=== PATIENT | female | born 1980 | race Caucasian/White ===

== ENCOUNTER 2020-09-05 15:32 | Outpatient (CLI) | payer OTHER, SELFPAY ==
--- NOTE | 2020-09-05 15:38 | MM_ITS ---
WS: [id number] BILATERAL SCREENING DIGITAL MAMMOGRAM WITH CAD HISTORY: SCREENING COMPARISON: None available. Bilateral CC and MLO views submitted. Computer aided detection analyzed. Breast composition: There are scattered areas of fibroglandular density. No suspicious masses, microc alcifications or architectural distortion. MM/[place] [id number] IMPRESSION: BI-RADS: 1-Negative FOLLOW UP: 1 Year Follow-up
== END 2020-09-05 15:33 | disposition home or self-care (01) ==
PROVIDERS: PCP Family Medicine; Visit Provider Family Medicine
DX: Z12.31 Encounter for screening mammogram for malignant neoplasm of breast (principal)
CPT/HCPCS: 77067

== ENCOUNTER 2021-06-28 07:34 | Outpatient (CLI) | payer OTHER, SELFPAY ==
[2021-06-28 07:56] VITALS: BP 158/108; PULSE 106; RESP 14; TEMP 37; O2SAT 97
[2021-06-28 08:28] VITALS: BP 116/82; PULSE 93; RESP 19; O2SAT 95
[2021-06-28 09:08] VITALS: BP 112/82; PULSE 92; RESP 20; O2SAT 96
== END 2021-06-28 09:27 | disposition home or self-care (01) ==
LOC: OPS 07:36
PROVIDERS: PCP Internal Medicine; Visit Provider Internal Medicine
DX: U07.1 COVID-19 (principal)
CPT/HCPCS: 96365

== ENCOUNTER 2021-10-04 07:19 | Outpatient (CLI) | payer OTHER, SELFPAY ==
--- NOTE | 2021-10-04 07:45 | MM_ITS ---
WS: [id number] BILATERAL DIGITAL SCREENING MAMMOGRAPHY WITH CAD CLINICAL INFORMATION: SCREENING HISTORY: Screening mammogram. No current complaints. COMPARISON: September 05, 2020 TECHNIQUE: Bilateral CC and MLO views. FINDINGS: Scattered fibroglandular densities bilaterally. No suspicious focal mass, asymmetry, calcifications, or architectural distortion. No evidence of malignancy. MM/[place] [id number] IMPRESSION: BI-RADS: 1-Negative FOLLOW UP: 1 Year Follow-up Recommend return to annual screening mammography.
== END 2021-10-04 07:20 | disposition home or self-care (01) ==
LOC: RADSHAW 07:21
PROVIDERS: PCP Nurse Practitioner Family; Visit Provider Nurse Practitioner Family
DX: Z12.31 Encounter for screening mammogram for malignant neoplasm of breast (principal)
CPT/HCPCS: 77067

== ENCOUNTER 2022-11-29 14:54 | Outpatient (CLI) | payer OTHER, SELFPAY ==
--- NOTE | 2022-11-29 15:03 | MM_ITS ---
WS: [id number] BILATERAL 3D TOMOSYNTHESIS DIGITAL SCREENING MAMMOGRAPHY WITH CAD CLINICAL INFORMATION: SCREENING HISTORY: Screening mammogram. No current complaints. COMPARISON: 2020 TECHNIQUE: Bilateral CC and MLO views. FINDINGS: Scattered fibroglandular densities bilaterally. No suspicious focal mass, asymmetry, calcifications, or architectural distortion. No evidence of malignancy. MM/[place] [id number] IMPRESSION: BI-RADS: 1-Negative FOLLOW UP: 1 Year Follow-up Recommend return to annual screening mammography.
== END 2022-11-29 14:55 | disposition home or self-care (01) ==
LOC: RAD 14:54
PROVIDERS: PCP Nurse Practitioner Family; Visit Provider Nurse Practitioner Family
DX: Z12.31 Encounter for screening mammogram for malignant neoplasm of breast (principal)
CPT/HCPCS: 77063; 77067

== ENCOUNTER 2022-12-29 09:41 | Emergency (ER) | payer OTHER, SELFPAY ==
[2022-12-29 09:54] VITALS: BP 141/88; PULSE 87; RESP 16; TEMP 35.8; O2SAT 99; BMI 44.5
--- NOTE | 2022-12-29 10:00 | CTR_ITS ---
PROCEDURE INFORMATION: Exam: CT Abdomen And Pelvis Without Contrast Exam date and time: 12/29/2022 10:40 AM Age: 42 years old Clinical indication: Abdominal pain; Flank; Left; Prior surgery; Surgery type: Hysto appy gb; Additional info: Flank pain, HX of stones TECHNIQUE: Imaging protocol: Computed tomography of the abdomen and pelvis without contrast. Radiation optimization: All CT scans at this facility use at least one of these dose optimization techniques: automated exposure control; mA and/or kV adjustment per patient size (includes targeted exams where dose is matched to clinical indication); or iterative reconstruction. Other protocol: This patient has received 0 known CTs and 0 known cardiac nuclear medicine studies in the 12 months prior to the current study. COMPARISON: US pelv w/transvag [id number] 02/13/2022 10:14 AM RADIATION DOSE METRICS: Total DLP (mGy-cm): 1283.53 FINDINGS: Liver: There is moderate patchy fatty infiltration of the liver seen. No mass seen on noncontrast imaging. Gallbladder and bile ducts: Status post prior cholecystectomy. No biliary ductal dilatation. Pancreas: The non-contrast enhanced pancreas appears grossly unremarkable. No ductal dilation. Spleen: The non-contrast enhanced spleen appears unremarkable. No splenomegaly. Adrenal glands: Unremarkable non-contrast CT appearance of the adrenals. No definte masses. Kidneys and ureters: No contour deforming renal masses seen on the noncontrast CT. No intrarenal calculi seen. No right hydronephrosis, ureterectasis or ureteral calculi. Stomach and bowel: The non-contrast opacified stomach is not well distended with relative gastric fold prominence. Assessment is limited. The noncontrast opacified small bowel loops appear unremarkable. The noncontrast opacified loops of colon show a few sigmoid colonic diverticula, without CT evidence of diverticulitis. The lack of orally administered contrast material limits assessment. Appendix: Status post prior appendectomy. Intraperitoneal space: No abdominal ascites. No free air. Some benign phleboliths seen in the pelvis. Vasculature: No abdominal aortic aneurysm. Lymph nodes: No enlarged lymph nodes. Urinary bladder: The bladder is not well distended with relative wall prominence. Assessment is limited. Reproductive: Status post prior hysterectomy. Bones/joints: [id number]-[id number] left hydronephrosis and ureterectasis with a left ureterovesicular junction 0.1 x 0.2 x 0.1 cm calculus (series 3, image 215 and series 5, image 103)-at the level of the hip joint. Soft tissues: Unremarkable. CT/CT kidney stone [id number] IMPRESSION: [id number] left hydronephrosis and ureterectasis with a left ureterovesicular junction 0.1 x 0.2 x 0.1 cm calculus (series 3, image 215 and series 5, image 103)-at the level of the hip joint.
--- NOTE | 2022-12-29 10:33 | ED_ITS ---
Documented by User: Chata Pop PA-C 12/29/22 12:20 HPI - Female Genitourinary General: Chief complaint: Urogenital-Female Stated complaint: possible kidney stone Time Seen by Provider: 12/29/22 09:52 Source: patient Mode of arrival: ambulatory Limitations: no limitations History of Present Illness: 42-year-old female presents the ER today for left flank pain that began this morning. Patient reports for the last week or so she has had some low back tenderness. She reports she woke up this morning and the pain started radiating around her left side into the front. Patient denies any pain with urination, increased urgency or frequency. Patient reports she is a diabetic and has a history of stones 1 other time. She has a history of having a hysterectomy after excessive blood loss during a delivery. Patient reports she has not take anything for pain at this time. She denies any nausea. She had a normal bowel movement this morning. Denies any known close sick contacts. Review of Systems General: Reports: 10 or more systems reviewed and unremarkable except in HPI and below Physical Exam Const: COMMON NORMALS: patient oriented x3, no limitations, healthy appearing, alert and well nourished; apparent distress (appears uncomfortable) and negative for average body habitus (obese) Resp: COMMON NORMALS: normal respiratory effort, No retractions and clear to auscultation bilaterally AUSCULTATION: clear to auscultation bilaterally Cardio: COMMON NORMALS: regular rate, regular rhythm and No murmurs present (Cardio) RATE: regular rate RHYTHM: regular rhythm GI: COMMON NORMALS: Normal to inspection, nondistended, normoactive bowel sounds present, Soft to palpation and non-tender PALPATION: Yes Soft to palpation : COMMON NORMALS: Yes no CVA tenderness BLADDER/KIDNEY EXAM: Yes no CVA tenderness Back/Pelvis: COMMON NORMALS: no CVA tenderness; negative for no thoracic nor lumbar tenderness (Left flank tenderness) Extremity: COMMON NORMALS: normal to inspection, full ROM and no pedal edema Neuro: COMMON NORMALS: patient oriented x3 SENSORIUM/ORIENTATION: Yes alert Psych: COMMON NORMALS: mental status grossly normal, Normal thought process present and cooperative THOUGHT PROCESS: Normal thought process present Skin: COMMON NORMALS: no rashes or lesions noted and no wounds GENERAL SKIN EXAM: no rashes or lesions noted Course ED course: Patient presents the ER with left flank pain that began this morning. She has had some low back pain for the last week however it significantly worsened this morning and started going around into the front on the left side. Patient has a history of a hysterectomy. We will get lab work and a CT. She has had his kidney stone 1 other time. We will do fluids, Zofran, and Toradol for pain at this time. Vital Signs: Vital signs: Vital Signs Temperature 96.4 F L 12/29/22 09:54 Pulse Rate 81 12/29/22 12:34 Respiratory Rate 16 12/29/22 12:34 Blood Pressure 147/82 12/29/22 12:34 Pulse Oximetry 99 12/29/22 09:54 Oxygen Delivery Me thod 12/29/22 09:54 MDM - Female Medical Decision Making Lab work is mostly unremarkable. Urine is noted to have blood and +[address] does indicate a stone in the ureterovesicular junction that is 1 mm x 2 mm x 1 mm. This should pass okay and likely patient is pretty near passing out. Patient was given a liter of fluids in the ER in addition to tamsulosin, ketorolac, and hydrocodone. Patient reported only mild improvement in pain with the ketorolac so we went ahead and gave a hydrocodone in ER. We will send patient home and recommend she push fluids. We will continue the ketorolac and add tramadol as needed for pain. Zofran also sent for nausea. Tamsulosin also sent. Patient is to follow-up with PCP in 3 to 5 days if no improvement. Return to the ER with new or worsening symptoms. Patient verbalized understanding and was in agreement with the treatment plan. Lab Data 12/29/22 10:34 12/29/22 10:34 Radiology Impressions Abdomen/Pelvis CT 12/29/22 10:00 IMPRESSION: Bkrt-nd-apffcgyu left hydronephrosis and ureterectasis with a left ureterovesicular junction 0.1 x 0.2 x 0.1 cm calculus (series 3, image 215 and series 5, image 103)-at the level of the hip joint. Laboratory Results WBC 7.7 10^3/uL (4.0-10.0) 12/29/22 10:34 RBC 5.00 10^6/uL (4.1-5.3) 12/29/22 10:34 Hgb 13.7 g/dL (11.5-15.3) 12/29/22 10:34 Hct 42.5 % (37.0-47.0) 12/29/22 10:34 MCV 85.0 fl (81-99) 12/29/22 10:34 MCH 27.4 pg (28.0-34.0) L 12/29/22 10:34 MCHC 32.2 g/dL (30.0-36.0) 12/29/22 10:34 RDW 14.0 % (12.1-15.1) 12/29/22 10:34 Plt Count 359 10^3/cmm (130-400) 12/29/22 10:34 MPV 10.5 fL (7.4-10.4) H 12/29/22 10:34 Neut % (Auto) 66.6 % 12/29/22 10:34 Lymph % (Auto) 27.6 % 12/29/22 10:34 Cache % (Auto) 4.4 % 12/29/22 10:34 Eos % (Auto) 0.8 % 12/29/22 10:34 Baso % (Auto) 0.3 % 12/29/22 10:34 Neut # (Auto) 5.15 10^3/uL (1.8-7.7) 12/29/22 10:34 Lymph # (Auto) 2.1 10^3/uL (0.8-4.8) 12/29/22 10:34 Cache # (Auto) 0.3 10^3/uL (0.2-0.9) 12/29/22 10:34 Eos # (Auto) 0.1 10^3/uL (0.0-0.8) 12/29/22 10:34 Baso # (Auto) 0.0 10^3/uL (0.0-0.1) 12/29/22 10:34 Nucleated RBC % (auto) 0 % 12/29/22 10:34 Nucleated RBCs # 0.0 /100WBC 12/29/22 10:34 Sodium 138 mmol/L (136-145) 12/29/22 10:34 Potassium 4.5 mmol/L (3.5-5.1) 12/29/22 10:34 Chloride 101 mmol/L (98-107) 12/29/22 10:34 Carbon Dioxide 23 mmol/L (22-29) 12/29/22 10:34 Anion Gap 18.5 (5-19) 12/29/22 10:34 BUN 15 mg/dL (6-20) 12/29/22 10:34 Creatinine 0.7 mg/dL (0.5-0.9) 12/29/22 10:34 GFR Calculation 91.8 mL/min (90-130) 12/29/22 10:34 Glucose 125 mg/dL (65-115) H 12/29/22 10:34 Calculated Osmolality 288 mOsm/kg (285-295) 12/29/22 10:34 Calcium 10.4 mg/dL (8.5-10.5) 12/29/22 10:34 Total Bilirubin 0.6 mg/dL (0.15-1.2) 12/29/22 10:34 AST 17 U/L (0-32) 12/29/22 10:34 ALT 27 U/L (0-33) 12/29/22 10:34 Alkaline Phosphatase 74 U/L (35-105) 12/29/22 10:34 Total Protein 8.1 g/dL (6.6-8.7) 12/29/22 10:34 Albumin 4.4 g/dL (3.5-5.2) 12/29/22 10:34 Globulin 3.7 g/dL (1.3-4.6) 12/29/22 10:34 Urine Color Dark yellow (Yellow) 12/29/22 10:38 Urine Appearance Cloudy (CLEAR) A 12/29/22 10:38 Urine pH 5 (5-7) 12/29/22 10:38 Ur Specific [place] 1.030 (1.005-1.030) 12/29/22 10:38 Urine Protein 1+ (Negative) H 12/29/22 10:38 Urine Glucose (UA) Norm (Normal) 12/29/22 10:38 Urine Ketones 1+ (Negative) H 12/29/22 10:38 Urine Blood 3+ (Negative) H 12/29/22 10:38 Urine Nitrate Negative (Negative) 12/29/22 10:38 Urine Bilirubin 1+ (Negative) H 12/29/22 10:38 Urine Urobilinogen Norm mg/dL (Negative) 12/29/22 10:38 Ur Leukocyte Esterase Trace (Negative) H 12/29/22 10:38 Urine RBC 25-40 /hpf (0-2) H 12/29/22 10:38 Urine WBC 5-10 /hpf (0-5) H 12/29/22 10:38 Ur Squamous Epith Cells 15-25 /hpf (0-5) H 12/29/22 10:38 Ur Transition Epith Cell 5-10 /hpf 12/29/22 10:38 Amorphous Sediment Not Reportable 12/29/22 10:38 Urine Bacteria 3+ /hpf (NONE) H 12/29/22 10:38 Urine Mucus 2+ /hpf 12/29/22 10:38 Critical Care Time Critical Care Time: Critical Care Time: No Discharge Plan Discharge Patient Disposition: Home Clinical Impression: Urolithiasis Qualifiers: Urinary calculus location: lower urinary tract Qualified Code(s): N21.9 - Calculus of lower urinary tract, unspecified Condition: Stable Prescriptions: New tamsulosin 0.4 mg capsule 0.4 mg PO DAILY Qty: 14 0RF ketorolac 10 mg tablet 10 mg PO Q8H PRN (Reason: pain) 3 Days Qty: 9 0RF ondansetron HCl 4 mg tablet 4 mg PO Q8H PRN (Reason: nausea and vomiting) 4 Days Qty: 12 0RF tramadol 50 mg tablet 50 mg PO Q12H PRN (Reason: pain) 5 Days Qty: 10 0RF Discharge Orders: Discharge ED (Routine); Ordered 12/29/22 Ordered By: Chata Pop Referrals: Neema Crane, PROFESSIONAL SECURITY OFFICER [Primary Care Provider] - Discharge Diet: Advance as tolerated Discharge Activity: Increase activity as tolerated Patient Instructions: Opioid Safety, Pain Management Activity Restrictions/Additional Instructions: Take Flomax and ketorolac as prescribed. Take tramadol as needed for pain. Ta ke Zofran as needed for nausea. Push fluids. Follow-up with PCP in 3 to 5 days if no improvement. Return to the ER for new or worsening symptoms. Coding Level of Care Code ED Carpenter Inspector for Chg Fwd Exam Comprehensive Documented by User: Dane Hardwick DO 12/29/22 14:50 HPI - Female Genitourinary General: Chief complaint: Urogenital-Female Stated complaint: possible kidney stone Time Seen by Provider: 12/29/22 09:52 Course Vital Signs: Vital signs: Vital Signs Temperature 96.4 F L 12/29/22 09:54 Pulse Rate 81 12/29/22 12:34 Respiratory Rate 16 12/29/22 12:34 Blood Pressure 147/82 12/29/22 12:34 Pulse Oximetry 99 12/29/22 09:54 Oxygen Delivery Me thod 12/29/22 09:54 MDM - Female Medical Decision Making Lab work is mostly unremarkable. Urine is noted to have blood and +[address] does indicate a stone in the ureterovesicular junction that is 1 mm x 2 mm x 1 mm. This should pass okay and likely patient is pretty near passing out. Patient was given a liter of fluids in the ER in addition to tamsulosin, ketorolac, and hydrocodone. Patient reported only mild improvement in pain with the ketorolac so we went ahead and gave a hydrocodone in ER. We will send patient home and recommend she push fluids. We will continue the ketorolac and add tramadol as needed for pain. Zofran also sent for nausea. Tamsulosin also sent. Patient is to follow-up with PCP in 3 to 5 days if no improvement. Return to the ER with new or worsening symptoms. Patient verbalized understanding and was in agreement with the treatment plan. Chart reviewed and patient discussed with midlevel. Agree with assessment and plan. Lab Data 12/29/22 10:34 12/29/22 10:34 Radiology Impressions Abdomen/Pelvis CT 12/29/22 10:00 IMPRESSION: Qfaj-yi-frmrgkdv left hydronephrosis and ureterectasis with a left ureterovesicular junction 0.1 x 0.2 x 0.1 cm calculus (series 3, image 215 and series 5, image 103)-at the level of the hip joint. Laboratory Results WBC 7.7 10^3/uL (4.0-10.0) 12/29/22 10:34 RBC 5.00 10^6/uL (4.1-5.3) 12/29/22 10:34 Hgb 13.7 g/dL (11.5-15.3) 12/29/22 10:34 Hct 42.5 % (37.0-47.0) 12/29/22 10:34 MCV 85.0 fl (81-99) 12/29/22 10:34 MCH 27.4 pg (28.0-34.0) L 12/29/22 10:34 MCHC 32.2 g/dL (30.0-36.0) 12/29/22 10:34 RDW 14.0 % (12.1-15.1) 12/29/22 10:34 Plt Count 359 10^3/cmm (130-400) 12/29/22 10:34 MPV 10.5 fL (7.4-10.4) H 12/29/22 10:34 Neut % (Auto) 66.6 % 12/29/22 10:34 Lymph % (Auto) 27.6 % 12/29/22 10:34 Cache % (Auto) 4.4 % 12/29/22 10:34 Eos % (Auto) 0.8 % 12/29/22 10:34 Baso % (Auto) 0.3 % 12/29/22 10:34 Neut # (Auto) 5.15 10^3/uL (1.8-7.7) 12/29/22 10:34 Lymph # (Auto) 2.1 10^3/uL (0.8-4.8) 12/29/22 10:34 Cache # (Auto) 0.3 10^3/uL (0.2-0.9) 12/29/22 10:34 Eos # (Auto) 0.1 10^3/uL (0.0-0.8) 12/29/22 10:34 Baso # (Auto) 0.0 10^3/uL (0.0-0.1) 12/29/22 10:34 Nucleated RBC % (auto) 0 % 12/29/22 10:34 Nucleated RBCs # 0.0 /100WBC 12/29/22 10:34 Sodium 138 mmol/L (136-145) 12/29/22 10:34 Potassium 4.5 mmol/L (3.5-5.1) 12/29/22 10:34 Chloride 101 mmol/L (98-107) 12/29/22 10:34 Carbon Dioxide 23 mmol/L (22-29) 12/29/22 10:34 Anion Gap 18.5 (5-19) 12/29/22 10:34 BUN 15 mg/dL (6-20) 12/29/22 10:34 Creatinine 0.7 mg/dL (0.5-0.9) 12/29/22 10:34 GFR Calculation 91.8 mL/min (90-130) 12/29/22 10:34 Glucose 125 mg/dL (65-115) H 12/29/22 10:34 Calculated Osmolality 288 mOsm/kg (285-295) 12/29/22 10:34 Calcium 10.4 mg/dL (8.5-10.5) 12/29/22 10:34 Total Bilirubin 0.6 mg/dL (0.15-1.2) 12/29/22 10:34 AST 17 U/L (0-32) 12/29/22 10:34 ALT 27 U/L (0-33) 12/29/22 10:34 Alkaline Phosphatase 74 U/L (35-105) 12/29/22 10:34 Total Protein 8.1 g/dL (6.6-8.7) 12/29/22 10:34 Albumin 4.4 g/dL (3.5-5.2) 12/29/22 10:34 Globulin 3.7 g/dL (1.3-4.6) 12/29/22 10:34 Urine Color Dark yellow (Yellow) 12/29/22 10:38 Urine Appearance Cloudy (CLEAR) A 12/29/22 10:38 Urine pH 5 (5-7) 12/29/22 10:38 Ur Specific [place] 1.030 (1.005-1.030) 12/29/22 10:38 Urine Protein 1+ (Negative) H 12/29/22 10:38 Urine Glucose (UA) Norm (Normal) 12/29/22 10:38 Urine Ketones 1+ (Negative) H 12/29/22 10:38 Urine Blood 3+ (Negative) H 12/29/22 10:38 Urine Nitrate Negative (Negative) 12/29/22 10:38 Urine Bilirubin 1+ (Negative) H 12/29/22 10:38 Urine Urobilinogen Norm mg/dL (Negative) 12/29/22 10:38 Ur Leukocyte Esterase Trace (Negative) H 12/29/22 10:38 Urine RBC 25-40 /hpf (0-2) H 12/29/22 10:38 Urine WBC 5-10 /hpf (0-5) H 12/29/22 10:38 Ur Squamous Epith Cells 15-25 /hpf (0-5) H 12/29/22 10:38 Ur Transition Epith Cell 5-10 /hpf 12/29/22 10:38 Amorphous Sediment Not Reportable 12/29/22 10:38 Urine Bacteria 3+ /hpf (NONE) H 12/29/22 10:38 Urine Mucus 2+ /hpf 12/29/22 10:38 Discharge Plan Discharge Patient Disposition: Home Clinical Impression: Urolithiasis Qualifiers: Urinary calculus location: lower urinary tract Qualified Code(s): N21.9 - Calculus of lower urinary tract, unspecified Condition: Stable Prescriptions: New tamsulosin 0.4 mg capsule 0.4 mg PO DAILY Qty: 14 0RF ketorolac 10 mg tablet 10 mg PO Q8H PRN (Reason: pain) 3 Days Qty: 9 0RF ondansetron HCl 4 mg tablet 4 mg PO Q8H PRN (Reason: nausea and vomiting) 4 Days Qty: 12 0RF tramadol 50 mg tablet 50 mg PO Q12H PRN (Reason: pain) 5 Days Qty: 10 0RF Discharge Orders: Discharge ED (Routine); Ordered 12/29/22 Ordered By: Chata Pop Referrals: Neema Crane, PROFESSIONAL SECURITY OFFICER [Primary Care Provider] - Discharge Diet: Advance as tolerated Discharge Activity: Increase activity as tolerated Patient Instructions: Opioid Safety, Pain Management Activity Restrictions/Additional Instructions: Take Flomax and ketorolac as prescribed. Take tramadol as needed for pain. Take Zofran as needed for nausea. Push fluids. Follow-up with PCP in 3 to 5 days if no improvement. Return to the ER for new or worsening symptoms. Coding Level of Care Code ED Carpenter Inspector for Dylan Fwd Exam Comprehensive
[2022-12-29 10:46] LABS: Basophils % 0.3 %; Eosinophils # 0.1 10^3/uL (0.0-0.8); Eosinophils % 0.8 %; Hematocrit 42.5 % (37.0-47.0); Hemoglobin 13.7 g/dL (11.5-15.3); Lymphocytes # 2.1 10^3/uL (0.8-4.8); Lymphocytes % 27.6 %; Mean Corpuscular HGB Conc 32.2 g/dL (30.0-36.0); Mean Corpuscular Hemoglobin 27.4 pg (28.0-34.0); Mean Platelet Volume 10.5 fL (7.4-10.4); Monocytes # 0.3 10^3/uL (0.2-0.9); Monocytes % 4.4 %; Neutrophils # 5.15 10^3/uL (1.8-7.7); Neutrophils % 66.6 %; Nucleated Red Blood Cells % 0 %; Platelet Count 359 10^3/cmm (130-400); White Blood Count 7.7 10^3/uL (4.0-10.0)
[2022-12-29 10:52] LABS: Add Urine Microscopic? YES; Bilirubin Urine 1+ (Negative); Blood Urine 3+ (Negative); Glucose Urine UA Norm (Normal); Ketones Urine 1+ (Negative); Leukocyte Esterase Urine Trace (Negative); Nitrate Urine Negative (Negative); Protein Urine 1+ (Negative); Urine Appearance Cloudy (CLEAR); Urine Color Dark Yellow (Yellow); Urobilinogen Urine Norm (Negative); pH Urine 5 (5-7)
[2022-12-29] MEDS: sodium chloride 0.9% 1,000 ML 999 ML IV (10:54)
[2022-12-29] MEDS: ondansetron 2 mg/ML SDV 2 mL 4 MG IVP (10:54)
[2022-12-29] MEDS: ketorolac 30 mg/mL INJ IVP (10:54)
[2022-12-29 11:07] LABS: Bacteria Urine 3+ /hpf; Mucus Urine 2+ /hpf; RBC Urine 25-40 /hpf (0-2); Squamous Epithelial Cell Urine 15-25 /hpf (0-5)
[2022-12-29 11:08] LABS: Add Urine Culture? No
[2022-12-29 11:09] LABS: Alanine Aminotransferase 27 U/L (0-33); Albumin Level 4.4 g/dL (3.5-5.2); Alkaline Phosphatase 74 U/L (35-105); Anion Gap 18.5 (5-19); Aspartate Amino Transferase 17 U/L (0-32); Blood Urea Nitrogen 15 mg/dL (6-20); Calcium 10.4 mg/dL (8.5-10.5); Carbon Dioxide 23 mmol/L (22-29); Chloride 101 mmol/L (98-107); Creatinine Clr Calc Pharmacy 151.2312; Globulin 3.7 g/dL (1.3-4.6); Glomerular Filtration Rate 91.8 mL/min (90-130); Glucose 125 mg/dL (65-115); Osmolality Calculated 288 mOsm/kg (285-295); Potassium 4.5 mmol/L (3.5-5.1); Sodium 138 mmol/L (136-145); Total Bilirubin 0.6 mg/dL (0.15-1.2); Total Protein 8.1 g/dL (6.6-8.7)
[2022-12-29 11:10] VITALS: BP 132/66; PULSE 81; RESP 18
[2022-12-29] MEDS: tamsulosin 0.4 mg Capsule PO (11:30)
[2022-12-29] MEDS: HYDROcodone-acetaminophen 5-325 mg Tablet 1 TAB PO (11:32)
[2022-12-29 12:34] VITALS: BP 147/82; PULSE 81; RESP 16
== END 2022-12-29 12:35 | disposition home or self-care (01) ==
PROVIDERS: Emergency Provider Physician Assistant; PCP Nurse Practitioner Family
DX: N13.2 Hydronephrosis with renal and ureteral calculous obstruction (principal)
CPT/HCPCS: 74176; 80053; 81001; 85025; 96374; 96375; 99285; J1885; J2405; J7030

== ENCOUNTER 2023-12-12 15:08 | Outpatient (CLI) | payer OTHER, SELFPAY ==
--- NOTE | 2023-12-12 15:15 | MM_ITS ---
WS: [id number] BILATERAL 3D TOMOSYNTHESIS DIGITAL SCREENING MAMMOGRAPHY WITH CAD CLINICAL INFORMATION: SCREENING HISTORY: Screening mammogram. No current complaints. COMPARISON: 11/29/2022 TECHNIQUE: Bilateral CC and MLO views. FINDINGS: Scattered fibroglandular densities bilaterally. No suspicious focal mass, asymmetry, calcifications, or architectural distortion. No evidence of malignancy. A few benign calcifications. IMPRESSION: MM/[place] [id number] BI-RADS: 2-Benign FOLLOW UP: 1 Year Follow-up Recommend return to annual screening mammography.
== END 2023-12-12 15:09 | disposition home or self-care (01) ==
LOC: RAD 15:09
PROVIDERS: PCP Nurse Practitioner Family; Visit Provider Nurse Practitioner Family
DX: Z12.31 Encounter for screening mammogram for malignant neoplasm of breast (principal); R92.323 Mammographic fibroglandular density, bilateral breasts; R92.1 Mammographic calcification found on diagnostic imaging of breast
CPT/HCPCS: 77063; 77067

== ENCOUNTER 2024-06-09 13:30 | Outpatient (CLI) | payer OTHER, SELFPAY ==
--- NOTE | 2024-06-09 13:32 | CT_ITS ---
WS: [id number] CT ABDOMEN PELVIS TECHNIQUE: Contrast-enhanced CT of the abdomen and pelvis with coronal and sagittal reformatted image s. CLINICAL INFORMATION: HX OF PARTIAL HYSTERECTOMY/ABNORMAL VAGINAL BLEEDING COMPARISON: CT 2022 DLP: 1425.[address] scans at [facility] use at least one of these dose optimization techniques: automated e xposure control; mA and/or kV adjustment per patient size (includes targeted exams where dose is matc hed to clinical indication); or iterative reconstruction. FINDINGS: Lung bases are well aerated. Hepatomegaly. Diffuse fatty infiltration of liver. Prior cholecystectomy . Normal GE junction. Normal portal vein and splenic vein. Normal pancreatic parenchymal enhancement. Normal spleen. Adrenal glands are normal. Normal caliber abdominal aorta. Celiac and SMA are patent. No hydronephrosis in either kidney. Tiny bilateral renal cysts. Cortical scarring upper pole RIGHT kidney. No evidence of high-grade smal l or large bowel obstruction. Prior appendectomy. Prior hysterectomy. LEFT ovarian cyst measuring 2.[address]/CT abdomen pelvis w con* [id number] IMPRESSION: 1. Hepatomegaly with diffuse fatty infiltration of liver. 2. Prior cholecystectomy. Prior appendectomy. 3. Normal hysterectomy bed. No free fluid or hematoma in the pelvis. 4. LEFT ovarian cyst measuring 2.6 cm 5. No other acute findings.
[2024-06-09] MEDS: iohexol 350 mg/mL 500 mL Btl (per mL) IV (13:57)
== END 2024-06-09 13:31 | disposition home or self-care (01) ==
PROVIDERS: PCP Nurse Practitioner Family; Visit Provider Nurse Practitioner Family
DX: N93.8 Other specified abnormal uterine and vaginal bleeding (principal); K76.0 Fatty (change of) liver, not elsewhere classified; N83.202 Unspecified ovarian cyst, left side; Z98.890 Other specified postprocedural states
CPT/HCPCS: 74177; Q9967

== ENCOUNTER 2024-12-13 07:54 | Outpatient (CLI) | payer OTHER, SELFPAY ==
--- NOTE | 2024-12-13 07:59 | MM_ITS ---
WS: [id number] SCREENING DIGITAL TOMOSYNTHESIS MAMMOGRAM WITH CAD HISTORY: SCREENING COMPARISON: 12/12/2023, 11/29/2022, Bilateral CC and MLO with tomosynthesis views submitted. Synthetic mammography reviewed. Computer aid ed detection analyzed. Breast composition: There are scattered areas of fibroglandular density. New asymmetry in the posteri or lateral RIGHT breast has not been present on prior studies. Asymmetry is best seen on the CC proje ction measuring 1.5 x 1.7 cm. This may be the asymmetry seen just below the nipple line on the latera l projection. MM/MM [facility] BI tomosynthesis [id number] IMPRESSION: BI-RADS: 0 - Incomplete: Need additional imaging evaluation. FOLLOW UP: Need Additional Imaging RIGHT breast: Spot compression views (CC and MLO). True ML. Ultrasound to follo w if abnormality persists.
== END 2024-12-13 07:55 | disposition home or self-care (01) ==
LOC: RAD 07:55
PROVIDERS: PCP Nurse Practitioner Family; Visit Provider Nurse Practitioner Family
DX: Z12.31 Encounter for screening mammogram for malignant neoplasm of breast (principal); R92.323 Mammographic fibroglandular density, bilateral breasts; N64.89 Other specified disorders of breast
CPT/HCPCS: 77063; 77067